=== PATIENT | male | born 1975 | race Hispanic/Latino ===

== ENCOUNTER 2024-07-19 17:57 | Emergency (ER) | payer OTHER | END 2024-07-19 20:12 | LOC: EEVIPCON 17:57 → ERS 17:57 | DX: S62.324A Displaced fracture of shaft of fourth metacarpal bone, right hand, initial encounter for closed fracture (principal); W01.0XXA Fall on same level from slipping, tripping and stumbling without subsequent striking against object, initial encounter | CPT/HCPCS: 29125; 99283 ==